=== PATIENT | female | born 1950 | race Caucasian/White ===

== ENCOUNTER 2019-08-25 15:14 | Inpatient (IN) | payer OTHER ==
[~2019-08-25] VITALS: Ht 165.1 cm; Wt 50.8 kg
[2019-08-25 17:50] VITALS: BP 110/58
--- NOTE | 2019-08-25 19:54 | NUR ---
1750 PATIENT ADMITTED TO ROOM 523B VIA CART PER AMBULANCE TRANSPORT. PATIENT AMBULATED TO BED WITH STEADY GAIT. PATIENT UP TO BATHROOM VOIDED X1. VITAL SIGNS- BP 110/58 P-88 R-18 T-99.1 SATS- 94%. WT 113LBS HT- 5'5" PATIENT STATES SHE WAS ADMITTED DUE TO SI WITH A PLAN. 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 PATIENT STATES HER CALLED POWER PLANT SUPERINTENDENT ON HER AND SHE WAS TAKEN TO [facility]. PATIENT STATES EVERYDAY STRESSORS AND HEALTH ISSUES HAS MADE HER GET TO THIS POINT. PT HAS A HX OF SI AND STATES SINCE 1983 WHEN DAD SHE WAS DX WITH DEPRESSION AND POSSIBLY BIPOLAR. SHE WAS ADDMITTED TO [facility] ON 08/22/2019. PATIENT C/O HER BROTHER KHADIJAH KNOW OF PAST SI ATTEMPTS AND HAS DONE SOMETHING TO HER COMPUTER AND POSSIBLY WATCHING HER. PATIENT ALSO MENTIONS HER PHONE SERVICE (ATT) AND HOW SHE WILL CHANGE SERVICE THEY (ANGELIKA SPOUSE) AND HER GET ABUSIVE CALLS OVER THE CELL PHONES. PATIENT STATES NOT TRUSTING PEOPLE. SHE SAYS SHE HAS NO SUPPORT FROM FAMILY OR FRIENDS. HER DPOA IS HER SISTER ( JOSEFINA VAUGHN) BUT DOES NOT WANT HER USED OR CALLED. PATIENT LIVES AT HOME WITH ANGELIKA () AND HER MEDICAL HX IS PART OF HER STRESSORS. 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 PATIENT SAYS THAT WHEN SHE WAS AWAY FOR HER PANCREATIC CANCER SHE CAME HOME TO A REORGAIZED HOME THAT ANGELIKA DID AND THAT STRESSED HER OUT. PATIENT IS ALL OVER THE PLACE WITH DETAILS ABOUT HER STRESS AND WHAT CAUSES HER DEPRESSION. PATIENT APPEARS TO BE SAD AT TIMES WHILE TALKING TO YACHT CAPTAIN THEN HAS A BURST OF ENERGY AND SPEAKS ABOUT WHAT HER ARE PLANNING ON DOING BECAUSE OF THE SUSPICIOUS PHONE CALLS. PATIENT DOES NOT COMPLAIN OF PAIN LUNG SOUNDS CLEAR, BS ACTIVE X4, PATIENT DENIES SI AT THIS TIME AND KNOWS WHAT SHE DID TO GET ADMITTED. SHE IS A VOLUNTARY ADMIT. NO SKIN TEARS NOTED, SLIGHT BRUISING TO KNEES. MEDICATION LIST FROM PATIENT RECIEVED AND PHARMACY USED IS [facility] [address] OR [email or web address] OR [facility] TO FILL MEDICATIONS. DIET ORDERED, PATIENT IS HUNGRY. REPORT GIVEN TO ON COMING SHIFT
[2019-08-25 20:09] VITALS: BP 144/48
[2019-08-25] MEDS ORDERED: XARELTO10 M1 PO (20:34)
[2019-08-25] MEDS ORDERED: FUROSEMIDE 20 M20 MG PO (20:35)
[2019-08-25] MEDS ORDERED: LISINOPRIL2.5 MG PO (20:37)
[2019-08-25] MEDS ORDERED: FAMOTIDINE20 MG PO (20:39)
[2019-08-25] MEDS ORDERED: SYNTHROID75 MCG PO (20:40)
[2019-08-25 22:00] VITALS: BP 144/48
--- NOTE | 2019-08-26 05:29 | NUR ---
PATIENT APPEARS NEEDY AND DEMANDING. SHE INTERUPTS STAFF WHEN SHE SEE'S THEY ARE IN FLIGHT TO HELP SOMEONE ELSE AND HAS TO HAVE HER QUESTIONS ANSWERED RIGHT AWAY. SHE SAT AND WORKED ON A Blueseed IN DINING ROOM BY HERSELF. PATIENT HAD ROLLED UP PAPER SHE USED EAR PLUG BECAUSE SHE SAYS THE NOISE INCREASES HER ANXIETY. SHE WAS D[facility]D FROM [facility] AFTER BEING ADMITTED THERE ON 08/21. SHE DENIES SI/AH/HI. SHE DOES SEEK PSYCH TREATMENT THOUGH AND SHE BELITTLED THIS [facility] WITHIN 2 HOURS OF BEING HERE STATING THEY NEED TO HAVE ONGOING GROUPS AND ACTIVITIES. EXPLAINED THAT THIS HAPPENS ALL DAY LONG AND AFTER SUPPER IS MORE A SOCIAL TIME AND SPOKE OF READING, CROSSWORD PUZZLES, WORD SEARCHES, COLORING ETC CAN BE DONE. PATIENT HAD HS SNACK. SHE DESIRES TO HAVE A 1:1 THERAPIST THAT JUST SITS AND TALKS WITH HER ABOUT HER GOALS. SHE STATED TO DAY NURSE THAT SHE HAS SET GOALS TO START DRAWING AGAIN AND EXERCISING MORE. PATIENT WAS CONTINUALLY FRUSTRATED AND COMPARED OUR [facility] TO OTHER PLACES AND STATES,"WE ARE NOT DOING IT RIGHT" AND COMPLAINED ALL NIGHT AND MADE SNIDE REMARKS ABOUT STAFF AND HOW SHE PERCIEVES THINGS SHOULD BE DONE. I SUGGESTED SHE SPEAK WITH THE DR AND MARKETING SUMMER INTERN ABOUT HER IDEAS. SHE WOULD NOT GIVE ME ANY. TRIED TO LISTEN CLOSELY TO HER AND ENCOURAGE HER BUT THIS MADE IT WORSE. TOLD HER THE DR AND SW WILL BE WORKING WITH HER 1:1 AND HELPING SET GOAL AND TREATMENT PLANS. PATIENT ALSO WANTING ORDER FOR CREON, A PANCREATIC ENZYME SHE STATES SHE TAKES FOR CHRONIC DIARHEA THAT SHE HAS HAD SINCE SHE HAD PANCREATIC CANCER SURGERY. SHE STATES SHE TAKES 5 CAPSULES AT EACH MEAL, 2 CAPSULES WITH SNACKS AND ALSO USES AN ANTIDIARHEAL. PATIENT DOES NOT TRUST ANYONE. STATES HER IS BRINGING A FEW BELONGINGS IN TODAY. HISTORY STATES IN 1983 WHEN HER DAD THAT HER DEPRESSION/POSSIBLE BIPOLAR BEGAN. PATIENT IS A VOLUNTARY ADMIT. SHE IS A VERY NEGATIVE AFFECT. PATIENT SLEEPING AT THIS TIME. SHE DID GET UP TWICE THRU THE NIGHT TO GET ICE WATER FROM THE WATER DISPENSER. ROUTINE ROUNDING FOR SAFETY ASSESSMENT BEING DONE. PATIENT AMBULATES AND IS STEADY ON FEET. PATIENT STATES THAT WHEN SHE WAS GIVEN AN INJECTION OF ATIVAN AT LAST PLACE THAT IT HELPED HER ANXIETY AND HELPED HER FEEL AND THINK SO MUCH BETTER. WILL CONTINUE TO MONITOR. COMPLAINED ALL NIGHT ABOUT HOW SHE PERCEIVES
[2019-08-26 08:59] VITALS: BP 140/80
--- NOTE | 2019-08-26 11:19 | NUR ---
Kelly asked to speak to me today regarding issues on the unit. I met with her Dr. Blakely and MELI Evans. Kelly stated that we are inept. She compared us to other facilities. She wanted to know what medicines she was taking. Dr. Blakely printed off her medication list. We reviewed her medications. She became angry about some of the medications that are on standing orders i.e. tylenol and the standing orders for diabetics. Once I explained the rationale for the standing orders she verbalized understanding. Dr. Blakely interviewed her about her medical and psychiatric hx. She is wanting to d/c from us, but then stated that she needs help. She stated that she has no support from family, friends or from her advent. I did enter a front line supervisor consult. I also paged the front line supervisor to come and visit with her. Kelly stated that she felt like "God is punshing her." She did admit to having suicidal thoughts today. She asked about how she can stop her anxiety and negative thoughts. I informed her that will look and her medications and adjust them as nessecary. did inquire about her medications. Cristina reasssured Kelly, that they would be having indiviualized session. Kelly admits to being angry, losing control, and being scared. When we explained things to her, she appeared to be a bit more relaxed, and verbalized understanding. See MELI and physician notes for details.
[2019-08-26 12:41] VITALS: BP 140/80
--- NOTE | 2019-08-26 12:46 | NUR ---
ASSUMED CARE AT 0700 THIS MORNING. PT. UPSET WITH MORNING MEDICATIONS BECAUSE "THEY ARE NOT RIGHT". SHE STARTED THROWING THE MEDICATIONS AROUND. THIS RN STARTED PICKING THEM UP. SHE AGAIN STARTED THROWING THEM. THIS RN TOLD HER THIS IS UNEXCEPTABLE AND CANNOT BE ALLOWED. SHE DID STOP. SHE DID NOT TAKE HER CHOLECALCIFEROL THIS MORNING. SHE DID TAKE THE REST OF THE PRESCRIBED MEDICATION. SHE CAME TO THE DOOR UPSET BECAUSE, "THIS IS NOT A REAL PLACE, IT IS A JOKE. I NEED TO GET OUT OF HERE" THIS NURSE ATTEMPTED TO TALK TO HER BUT SHE CONTINUED THE BEHAVIORS. DR. BEGUM, CASI TAFOYA, AND THE SW SPOKE WITH HER. THIS DID LAST FOR SOME TIME. IN THE AFTERNOON SHE AGAIN STARTED TALKING TO DR. BEGUM ABOUT HOW BAD SHE HAS IT HERE AND WHY DOES THE NOT WANT TO HELP HER. PT. WAS INFORMED BY TO GO TO GROUPS AND PARTICIPATE. PT. GIVEN ATIVAN 0.5 MG PO.
--- NOTE | 2019-08-26 16:44 | NUR ---
MELI, Dr. Blakely, and the nurse conditioning yard supervisor met with pt to discuss her concerns. She was upset about many things. After listening to her, MELI asked her if she was really upset about the lack of control she has in her life. She admitted that was true. She said she does not know how things go around the unit and would like a tour. MELI asked pt if she could give staff through the weekend to work with her, and she agreed to do so. MELI asked the community service officer coordinator to give pt and orientation. The community service officer coordinator did so. Pt came to MELI office and spoke with the percussion instrument repairer. After doing so, MELI talked with her about mindfulness and told her she would give her a grounding worksheet as homework. MELI provided this worksheet to pt and told her she would check back tomorrow to discuss it. MELI team will continue to follow pt during her stay on this unit.
[2019-08-26 19:51] VITALS: BP 123/88
--- NOTE | 2019-08-26 21:40 | H ---
[facility] [place] [address] HISTORY AND PHYSICAL Name: BRONSON LYNCH Room #: 523B-B ADM IN M.R.#: [id number] Admission: 08/25/19 Attend Phys: Walt Blakely DO Discharge: Date of : 52 Report #: [id number] THIS REPORT FOR: cc: COURTNEY - Family physician unknown FAM - Family physician unknown Walt Blakely DO ~ CC: Walt Blakely [facility] unknown DATE OF SERVICE: 08/26/2019 ATTENDING PHYSICIAN: Walt Blakeyl DO. BUSINESS ANALYSIS SPECIALIST: Luís Littlejohn MD REASON FOR ADMISSION: Intentional suicide attempt with a box truck driver at her community residence with her as witness with Police Department response. SOURCES OF INFORMATION: Emergency Room notes from the [facility], interview with the patient, with nurse scheduling manager and case management social worker present and a little bit 1 on 1 with me. HISTORY OF PRESENT ILLNESS: This is a 69-year-old , retired female. The patient has a number of health and psychosocial difficulties. This culminated yesterday with her who apparently has mild dementia, catching her, trying to cut her wrists with razors for a box truck driver. The patient has been experiencing increased depression. She claims acute stressors are the having dementia, recent episodes of diarrhea. The patient also is status post she reports a pancreaticoduodenectomy, otherwise, known as a Whipple procedure for pancreatic cancer that was done in February 2019. Additional information from [facility], she has a past medical history of hypertension, hyperlipidemia, diabetes mellitus, the pancreatic adenocarcinoma. She also reports a suicide attempt 2 months prior where she attempted to "strangle herself." This may have been by hanging. The patient has a psychiatrist, she will not state the name of the replaced psychiatrist that retired roughly a year ago. She also sees a therapist Cailin Hunt at clinic. Patient denies smoking, alcohol or recreational drugs. REVIEW OF SYSTEMS: From the ER, CONSTITUTIONAL: Negative for appetite change, chills or fever. HEENT: Negative for congestion or sore throat. EYES: Negative for visual disturbances. RESPIRATORY: Negative for cough and shortness of breath. CARDIOVASCULAR: Negative for chest pain or palpitations, leg swelling. GASTROINTESTINAL: Positive for diarrhea, negative for abdominal pain, constipation, nausea, vomiting. [facility] [address] [place] [address] HISTORY AND PHYSICAL Name: BRONSON LYNCH Room #: 523B-B ADM IN M.R.#: [id number] Admission: 08/25/19 Attend Phys: Walt Blakely DO Discharge: Date of : 52 Report #: [id number] GENITOURINARY: Negative for dysuria. MUSCULOSKELETAL: Negative for arthralgias, neck pain. SKIN: Negative for pallor, rash and wound. NEUROLOGICAL: Positive for generalized weakness, negative for lightheadedness and numbness and headaches. PSYCHIATRIC: Depression, suicidal ideation, denied confusion. All other review of systems were negative. ALLERGIES: ADHESIVE TAPE, CONTRAST DYE IV, IODINE CONTAINING MEDIA, LATEX AND METRIZAMIDE. PAST MEDICAL HISTORY: Acquired hypothyroidism, benign neoplasm of the lip. She has listed, but does not recall an adverse chemotherapy reaction, focal epithelial hyperplasia of tongue, hyperlipidemia, hypertension, pancreatic adenocarcinoma, pancreatic insufficiency, status post resection of pancreatic mass, which was pathology positive for the pancreatic adenocarcinoma. PAST SURGICAL HISTORY: Include gynecologic cryosurgery in 1982. Cervix precancerous lesions, removal of benign tumor from lip in 1994, she had an ERCP with placement of an endoscopic stent in the biliary pancreatic duct on 07/15/2018. She also had an EGD with transendoscopic ultrasound-guided fine-needle aspiration biopsy 07/15/2018. I believe that was when her pancreatic cancer was diagnosed. She also had a tongue biopsy that probably occurred with the tumor removal. SOCIAL HISTORY: As stated, no smoking, no alcohol, no recreational drugs. FAMILY HISTORY: Her mother a year ago of heart disease. The mother also had hypertension and high cholesterol, hypertension age of mother was 50. Diabetes in her father at 44, rashes, skin problems in her brother, melanoma in her maternal grandmother at 75, heart disease in maternal grandmother at 75, heart attack in maternal grandmother, diabetes in paternal grandfather at 90, heart attack in paternal grandfather, heart attack in paternal grandmother. Physical exam done at the ER was grossly normal. LABORATORY DATA: From white blood cell count 6.4, H and H 11.6 and 35.3, platelet count 224. CMP: Sodium 141, potassium 4.3, chloride 107, glucose 85, BUN 20, creatinine 0.64, calcium 9.0, total protein 6.2, total bilirubin 0.3, albumin 4.2, alkaline phosphatase 101, AST 41, CO2 of 21, ALT 77, anion gap 13, EGFR non- greater than 60. TSH 7.55. Alcohol less than 10, acetaminophen less than 10. Salicylate less than 2.5. Free T4 0.8. It looks like she had a urine drug screen. I do not see results noted at this time, I look on subsequent pages. Urinalysis was negative. Drug screen was negative. Interestingly, on 07/01/2019 she had a CA19-9 which is 4. CEA which was 3.5, which is elevated. She had stool cultures done ____ may have been due to her [facility] [address] [place] [address] HISTORY AND PHYSICAL Name: BRONSON LYNCH Room #: 523B-B ADM IN .R.#: [id number] Admission: 08/25/19 Attend Phys: Walt Blakely DO Discharge: Date of : 52 Report #: [id number] diarrhea. Electrocardiogram done at showed a rate of 72, NM interval 165, QT 397, QTC is 435, sinus rhythm. Additional HPI; on interview today, she was claiming the unit was not a proper place for her. Staff included myself, nursing home assistant and case management social worker. The patient was putting up repeated barriers to her treatment. I was explaining the patient due to the seriousness of her behavior yesterday she would not be discharged. At her request, referral packets could be sent at other psychiatric units. However yield would likely be low on those accepting her since she is already on a Geriatric Psych Unit. PHYSICAL EXAMINATION: VITAL SIGNS: Today as follows: Temperature 36.4, pulse 85, respirations 18, BP 140/80, O2 sat 97%. MUSCULOSKELETAL: Dressed in hospital gown. Normal gait and station. MENTAL STATUS EXAMINATION: This is a well-developed female, dressed in hospital gown, wearing glasses, appearing stated age. Attention fair. Concentration fair. Speech is normal rate. Thought process is linear, hyper-focussed on current medical problems as well as 's dementia and endorses questionable SI. Denied HI. Denied auditory, visual, or tactile hallucinations. Memory not formally tested. Insight limited. Judgment impaired. Fund of knowledge well below average. 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 She has been retired I believe she said since 2013. FORMULATION: A 69-year-old female presenting status post suicidal ideation and gesture. DIAGNOSES: At this time, major depressive disorder, likely recurrent episodes of complicated grief. 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 Numerous physical issues including diabetes mellitus, the sequela from the Whipple procedure including pancreatic insufficiency. PLAN: Evaluate, stabilize, obtain collateral. She had previously been on fluoxetine 40 mg daily. I do not think it is deal due to cytochrome enzyme system inhibition, and therefore it is not in his in her best interest to be on. We will start her on sertraline and I am going to start her on 50. Patient requested higher starting dose so we will do Sertraline 100 mg daily. We will evaluate, stabilize, obtain collateral. Time spent on interview, review of records, coordination of care is at least [address] [place] [address] HISTORY AND PHYSICAL Name: BRONSON LYNCH ROSA Room #: 523B-B ADM IN M.R.#: [id number] Admission: 08/25/19 Attend Phys: Walt Blakely DO Discharge: Date of : 52 Report #: [id number] STRENGTHS: She is insured. She has family support. WEAKNESSES: Highly virulent cancer, some cluster B personality traits. ESTIMATED LENGTH OF STAY: 10-14 days. <ELECTRONICALLY SIGNED> By: Walt Blakely DO 08/26/19 2140 [id number] Walt Blakely DO /nt
--- NOTE | 2019-08-27 04:13 | NUR ---
Assumed care of pt @ 1900. Pt calm et cooperative this shift. Pt asked about clothes that had brought in for her today. Looked in locker et gave pt pants, socks, underwear, et bras that were in locker. Pt complained that did not bring any tops for pt to wear. Talked with nurse in ER et was able to get three tops from ER department (lost et found) for pt to wear. Took medications whole without difficulty. Ambulates the halls ad manfred with steady gait. Socialized in dayroom until HS but did not engage with peers. VSWNL. Health assessment with no abnormalities noted at present time. Denies SI/HI at present time. Currently resting in bed with eyes closed. Will continue to monitor per protocol.
[2019-08-27 07:28] VITALS: BP 128/74
[2019-08-27 15:38] VITALS: BP 128/74
--- NOTE | 2019-08-27 16:32 | NUR ---
1620 RESUMMED CARE OF PATIENT FROM OVERNIGHT SHIFT, PATIENT IN DAY ROOM QUIET. PATIENT REFUSED TO GET HER BLOOD SUGAR DONE AND COMPLAINED THAT SHE SHOULD GET 3 TABS OF HER PANCREASE WITH EACH MEAL. THE MORNING DOSE ONLY SAID 1 TAB FOR BREAKFAST AND THREE FOR LUNCH. PATIENT WAS NOT RUDE BUT SHE STATED SHE KNOWS HOW TO TAKE HER MEDICATION. PATIENT'S ABDOMEN SOFT ROUND BOWEL SOUNDS PRESENT 4 QUADRANTS. PATIENT CALM COOPERATIVE EASY TO REDIRECT WILL CONTINUE TO MONITOR PATIENT FOR SAFETY.
[2019-08-27 20:23] VITALS: BP 144/68; BP 161/60
--- NOTE | 2019-08-28 04:43 | NUR ---
Assumed care of pt @ 1900. Pt calm et cooperative this shift. Pt requested list of medications et was given list with times et education on mechanism of action. Pt verbalized understanding. Took medications whole without difficulty. Ambulates the halls ad manfred with steady gait. Denies SI/HI at present time. No behaviors noted. VSWNL. Health assessment with no abnormalities noted at present time. Currently resting in bed with eyes closed. Will continue to monitor per protocol.
[2019-08-28 08:28] VITALS: BP 153/77
[2019-08-28 09:00] VITALS: BP 153/77
--- NOTE | 2019-08-28 17:56 | NUR ---
AAOX3 FLAT AFFECT. VOICES CONCERNS ABOUT BEING BORED AND NOT ENOUGH STUCTURE HERE. DID ATTEND 2 GROUPS TODAY AND SPENT MOST OF DAY IN DINNING ROOM. GOOD APPETITE FOR MEALS - VERY UPSET THAT HER MEALS THAT SHE ORDERS DO NOT COME ORDERED. AMBULTES WITH SLOW STEADY GAIT.
[2019-08-28 20:39] VITALS: BP 135/69
--- NOTE | 2019-08-28 22:51 | NUR ---
Assumed care of patient this pm shift. [facility]. Patient appears to be in good spirits. Patient was appropriate with her conversation with rn. Patient denies pain. Patient denies si/hi. Patient takes medications whole. Patient ambulates without assistance. Patient is neat and clean. Patients assessment shows clear breath sounds, active bowel sounds, and s1 s2 heard with auscultation. Patients affect normal. We will continue to monitor.
[2019-08-29 08:20] VITALS: BP 141/78
[2019-08-29 10:39] VITALS: BP 141/78
--- NOTE | 2019-08-29 11:47 | NUR ---
1100 RESUMMED CARE FROM OVERNIGHT SHIFT THIS AM, PATIENT IN DAY ROOM TALKING WITH OTHER PATIENTS WAITING FOR BREAKFAST. PATIENT TOOK MEDICATION WITHOUT INCIDENCE. PATIENTS ABDOMEN SOFT ROUND BOWEL SOUNDS PRESENT IN 4 QUADRANTS, LUNGS CLEAR. PATIENT PLEASANT CALM COOPERATIVE, PATIENT DENIES SI/HI/AH/VH AT PRESENT. PATIENT HAD VISIT FROM AND IT WENT WELL WILL CONTINUE TO MONITOR PATIENT FOR SAFETY AND BEHAVIORS.
[2019-08-29 19:27] VITALS: BP 147/77
--- NOTE | 2019-08-30 00:02 | NUR ---
Assumed care of patient this pm shift. Patient in good spirits in the mileu with peers. Patient calm and cooperative. Patient denies hi/si. Patient denies pain. Patients affect is normal. Patient takes medications whole. Patient ambulates without assistance. Patient states that her bowels are regular. Patients assessment shows clear breath sounds, active bowel sounds, and s1 s2 heard with auscultation. We will continue to monitor.
[2019-08-30 08:43] VITALS: BP 128/70
[2019-08-30 11:10] VITALS: BP 128/70
--- NOTE | 2019-08-30 11:29 | NUR ---
SW met with pt and advised that in tx team it was discussed to have a family meeting with her Hernan. Pt agreed. Pt and SW contacted Hernan who said he would be availble for a family meeting at 2pm today. SW team will continue to follow pt during her stay on this unit.
--- NOTE | 2019-08-30 12:29 | NUR ---
1145 RESUMMED CARE FROM OVERNIGHT SHIFT THIS AM, PATIENT QUIET IN DAY ROOM WAITING FOR BREAKFAST. PATIENT TOOK MEDICATION WITHOUT INCIDENCE PATIENT'S AFFECT IS FLAT AND SAD. PATIENT WAS TEARFUL TALKING TO ME ABOUT HER NOT WANTING TO BE WITH HER ANYMORE. SHE STATES THEY LIVE IN 2 DI[address] DIRECTOR CAREER LIVING PLACES. PATIENT FEELS THAT SHE DOES NOT KNOW WHAT TO DO TO HELP HER DEPRESSION AND ANXIETY. SHE HAS NO CHILDREN PARENTS ARE . I ENCOURAGED HER TO CALL HER BROTHER AND SISTER TO TALK WITH THEM IT MIGHT MAKE HER FEEL BETTER. PATIENT'S ABDOMEN SOFT ROUND BBOWEL SOUNDS PRESENT LUNGS CLEAR. PATIENT DENIES SI/HI/AH/VH AT PRESENT BUT HER DEPRESSION IS PRETTY HIGH, PATIENT LIKES TO WRITE IN HER ROOM. SHE STATES THE DAYROOM IS TO LOUD FOR HER. I ENCOURAGED PATIENT TO INTERACT MORE IN GROUPS AND START THINKING MORE POSITIVE ABOUT HERSELF. WILL CONTINUE TO MONITOR PATIENT FOR SAFETY AND BEHAVIORS.
--- NOTE | 2019-08-30 15:40 | NUR ---
MELI and Dr. Blakely met with pt and her Hernan. Discharge of Thursday 08/31 @10am was discussed. MELI asked pt and Hernan what they would like to see happen to alleviate stress and Hernan responded he still wants to remain with pt, pt said she does not know but that she is overwhelmed with everything around her. There was discussion about pt's current DPOA docs that list her sister Christin as her DPOA. MELI asked if they could supply a copy for her to review. Hernan said he would. MELI told pt she will connect her with a outpatient psych program; pt and Hernan chose [facility] for outpatient care. MELI also advised Hernan that beginning tomorrow the hospital will not be accepting outside visitors. MELI team will continue to follow pt during her stay on this unit.
[2019-08-30 15:44] VITALS: BP 128/70
[2019-08-30 19:10] VITALS: BP 117/69
--- NOTE | 2019-08-31 02:59 | NUR ---
Assumed care of pt @ 1900. Pt calm et cooperative this shift. Took medications whole without difficulty. Ambulates the halls ad manfred with steady gait. Socialized with peers in dayroom most of shift. VSWNL. Health assessment with no abnormalities noted at present time. Denies SI/HI @ present time. Currently resting in bed with eyes closed. Will continue to monitor per protocol.
[2019-08-31 07:48] VITALS: BP 144/68
[2019-08-31 14:57] VITALS: BP 144/68
--- NOTE | 2019-08-31 15:02 | NUR ---
ASSUMED CARE AT 0700 THIS MORNING. PT. UP, DRESSED AND ON THE UNIT FOR MEALS. SHE TOOK HER MEDICATIONS WITHOUT DIFFICULTY. ATTENDED GROUPS. HAS HAD A NEUTRAL AFFECT AND MOOD TODAY. NO SMILING NOTED. NO GRIMACING, FROWNING NOTED EITHER. SHE HAS BEEN PLEASANT AND COOPERATIVE WITH THIS RN.
--- NOTE | 2019-08-31 17:41 | NUR ---
SW met with pt who is still unclear about what she wants to do with her relationship. SW provided supportive listening, and insight into her situation. Pt said she has an individual therapist at named Cailin Rosen. SW and pt attempted to call the facility but received a fast busy signal at the [facility]. SW also talked with pt about outpatient therapy and together they contacted [facility] and arranged for Pt to do an intake on 09/01 @1030 am. SW team will continue to follow pt during her stay on this unit.
[2019-08-31 19:27] VITALS: BP 128/69
--- NOTE | 2019-08-31 22:15 | NUR ---
Assumed care of patient at change of shift. She was sitting in day room conversing with peers and doing [employer] puzzles. She was calm and cooperative with assessment. She currently denies pain and no signs or symptoms of distress noted. Pt. denies SI/HI/AH/VH.
[2019-08-31 23:50] VITALS: BP 128/69
[2019-09-01 07:45] VITALS: BP 128/70; BP 141/78
[2019-09-01 08:52] VITALS: BP 141/78
[2019-09-01] MEDS ORDERED: IRON325 PO (10:48)
[2019-09-01] MEDS ORDERED: SEROQUEL 25 MG25 M1 PO (10:48)
[2019-09-01] MEDS ORDERED: ZOLOFT100 MG PO (10:48)
[2019-09-01] MEDS ORDERED: PANCREAZE DR 11 EAC2 PO (10:49)
[2019-09-01] MEDS ORDERED: VITAMIN D325 MCG PO (10:50)
[2019-09-01] MEDS ORDERED: CALCITRIOL0.25 MCG PO (10:50)
--- NOTE | 2019-09-01 12:02 | NUR ---
0700 ASSUMED CARE OF PATIENT, PATIENT IN ROOM AWAKE AT THAT TIME. PATIENT AT TABLE EATING BREAKFAST THIA AM DENIES NEEDS. PATIENT TAKES MEDS WITHOUT DIFFICULTY, A+O x4, LUNG SOUNDS CLEAR, BS ACTIVE, NO C/O PAIN. PATIENT STATES GOAL FOR TO DAY IS TOGOHOME STATES "I GET TO LEAVE AT 11AM" PATIENTDENIES ANY CONCERNS TO STOVE MECHANIC HOWEVER DOES DISCUSS WITH SW ABOUT GETTING HELP AT HOME. DENIES SI/HI/AH/VH 1130 DC INSTRUCTIONS GIVEN TO PATIENT PATIENT IS WORRIED THAT SPOUSE NOT HERE YET TO PICK HER UP. STAFF MEMBER DOWN TO FRONT OF HOSPITAL TO SEE IF IS HERE. PATIENT DC'D AT 1140 VIA WC ACCOMPANIED BY STOVE MECHANIC AND OTHER RN. WAITING AT FRONT DOOR. PATIENT AMBULATED TO VEHICLE.
--- NOTE | 2019-09-01 16:16 | NUR ---
MELI D/C Note MELI faxed discharge docs for pt to [facility] at [phone]. MELI filed this fax and confirmation pt in pt's chart. No other needs for SW team to address at this time.
--- NOTE | 2019-09-02 22:44 | D ---
[facility] [place] [address] DISCHARGE SUMMARY Name: BRONSON YLNCH Room #: 523B-B [facility] IN M.R.#: [id number] Admission: 08/25/19 Attend Phys: Walt Blakely DO Discharge: 09/01/19 Date of : 52 Report #: [id number] THIS REPORT FOR: cc: COURTNEY - Family physician unknown FAM - Family physician unknown Walt Blakely DO ~ THIS REPORT FOR: //name// CC: Walt VALDEZ unknown DATE OF SERVICE: 09/01/2019 INPATIENT PSYCHIATRIC DISCHARGE SUMMARY ATTENDING PSYCHIATRIST: Walt Blakely DO. COMMERCIAL GREEN BUILDING DESIGNER: Luís Littlejohn MD DISCHARGE DIAGNOSES: Major depressive disorder, recurrent, severe degree, improved. Also, the patient has narcissistic personality traits, low self-esteem type; partner relational disorder; family relational disorder with [id number] as well as the with the patient's sister. DISCHARGE DIET: 1800-calorie diabetic diet. ACTIVITY LEVEL: As tolerated. DISPOSITION: The patient will be discharging to her home where she lives with her , Hernan. DISCHARGE MEDICATIONS: As follows: Ferrous sulfate 325 mg p.o. b.i.d. for supplementation; sertraline 100 mg p.o. daily for major depression; Seroquel 25 mg p.o. q. 6 p.r.n. for anxiety and agitation; pancreatic enzyme replacement, Pancreaze DR 10,500 units 5 capsules p.o. with meals, additional 1 cap p.o. with snacks, patient was given a script for 175; calcitriol 0.25 mcg p.o. daily for hypocalcemia; cholecalciferol, which is vitamin D3 5000 International Units p.o. daily for supplementation. Also, the patient is on Xarelto 10 mg p.o. at bedtime for anticoagulation, lisinopril 20 mg p.o. daily for hypertension, famotidine 20 mg p.o. daily for GERD, levothyroxine 75 mcg p.o. daily. Furosemide was discontinued this admission. LABORATORY DATA: This admission are as follows including labs that were done in-house were blood sugars where she remained roughly in the 90s on average. REASON FOR ADMISSION: A week or so ago, the patient was transferred from the [address] [address] DISCHARGE SUMMARY Name: MUSHTAQ LYNCHRaffy LEE Room #: [address] [place] [address] [place] ..#: [id number] Admission: 08/25/19 Attend Phys: Walt Blakely DO Discharge: 09/01/19 Date of : 52 Report #: [id number] [facility]. Her caught her attempting to cut her wrists with razors from padded box sewer. HOSPITAL COURSE: The patient was admitted to Geriatric Psychiatry Unit. Initially, the patient was rather defensive, confrontational. Over time, she did open up that she had been in [place] in the fall where her sister lived for a Whipple procedure, received radiation treatments there as well. They are having a number of problems with the family system as the has mild dementia. resides with the patient's sister. The patient sounds like has not been in consistent psychotherapy. She [facility], but has not been in anything on magnitude of weekly psychotherapy. PHP IOP was recommended; however, there is limited to no availability due to current coronavirus epidemic. On the day of discharge, the patient was not suicidal or homicidal, had modest improvement in coping skills. PHYSICAL EXAMINATION: VITAL SIGNS: On the day of discharge are as follows: Temperature 36.8, pulse 97, respirations 18, BP 141/78. Normal gait and station. Wearing glasses. MENTAL STATUS EXAMINATION: This is a well-developed, thin female appearing stated age. BMI 18.6. Attention intact. Concentration intact. Speech is normal rate, volume, tone. Thought process is linear and goal directed. Thought content focused on discharge. No psychomotor agitation. No psychomotor retardation. Denied SI or HI. Denied auditory, visual, or tactile hallucinations. Memory not formally tested. Insight limited. Judgment fair. Fund of knowledge above average. PROGNOSIS: For this patient is guarded and will depend on her engaging in outpatient psychotherapy for more productive coping skills. Certainly, once individual issues are better addressed the next month, there may well be a role for more family therapy given the multiple stressors within the family system- like her husbands cognitive decline. <ELECTRONICALLY SIGNED> By: Walt Blakely DO 09/02/19 2244 20 41 Walt Blakely DO /nt
== END 2019-09-01 11:40 | disposition home or self-care (01) | DRG 885 ==
LOC: SBH 15:14
PROVIDERS: ADMIT Psychiatry & Neurology Psychiatry
DX: F33.2 Major depressive disorder, recurrent severe without psychotic features (principal); F01.50 Vascular dementia, unspecified severity, without behavioral disturbance, psychotic disturbance, mood disturbance, and anxiety; R45.851 Suicidal ideations; I10 Essential (primary) hypertension; E78.5 Hyperlipidemia, unspecified; E03.9 Hypothyroidism, unspecified; E11.9 Type 2 diabetes mellitus without complications; F41.9 Anxiety disorder, unspecified; F60.3 Borderline personality disorder; Z85.07 Personal history of malignant neoplasm of pancreas; Z82.49 Family history of ischemic heart disease and other diseases of the circulatory system; Z83.3 Family history of diabetes mellitus; Z80.8 Family history of malignant neoplasm of other organs or systems; Z79.899 Other long term (current) drug therapy; Z79.4 Long term (current) use of insulin; Z63.9 Problem related to primary support group, unspecified
CPT/HCPCS: 10880

== ENCOUNTER 2021-03-13 15:01 | Inpatient (IN) | payer OTHER ==
[~2021-03-13] VITALS: Ht 162.6 cm; Wt 63.5 kg
[~2021-03-13 15:01] MED LIST: CALCITRIOL0.25 MCG PO; FAMOTIDINE20 MG PO; FUROSEMIDE 20 M20 MG PO; IRON325 PO; LISINOPRIL2.5 MG PO; PANCREAZE DR 11 EAC2 PO; SEROQUEL 25 MG25 M1 PO; SYNTHROID75 MCG PO; VITAMIN D325 MCG PO; XARELTO10 M1 PO; ZOLOFT100 MG PO
--- NOTE | 2021-03-14 02:36 | NUR ---
ARRIVED ON THE [facility] FLOOR ACCOMPANIED BY Q6LUVVF FROM [facility] ED TO BED 523A via w/c @ 20:40. VS 119/71 74 18 98.5F 98%SpO2 weight 104.5lbs 5'5 1/2". SKIN IS WARM AND DRY, CAP REFILL <3 SECONDS, PERIPHERAL PULSES PRESENT, NO EDEMA NOTED. BREATH SOUNDS CLEAR TO AUSCULTATION, BOWEL SOUNDS PRESENT IN ALL 4Q. DENIES SI/HI, DENIES HALLUCINATIONS. A PORT IS INTACT IN THE RIGHT CHEST WALL. SARS-COV2 (PCR) NOT DETECTED. PREVIOUS DIAGNOSIS OF BIPOLAR AND SI NOTED. BED PLACED IN LOW POSITION AND BED ALARM SET, WILL CONTINUE TO MONITOR FOR SAFETY AND COMFORT PER UNIT PROTOCOL.
[2021-03-14 05:38] LABS: CHOLESTEROL 163 mg/dL (<200); HDL CHOLESTEROL 49 mg/dL (>40); LDL CHOLESTEROL 103 mg/dL (<100); TC:HDL 3.3 Ratio (Not establshd); TRIGLYCERIDE 59 mg/dL (<150); VLDL 12 mg/dL (<40)
[2021-03-14 06:01] LABS: SERUM ASSESSMENT Clear
--- NOTE | 2021-03-14 13:04 | NUR ---
PATIENT CARE ASSUMED AT 0700, PATIENT WAS PACING ON THE HALLWAY WEARING A PAPER CLOTHS, GOR HER CHANGED INTO THE YELLOW SHIRT AND PANT, SHE WAS CALM AND PLEASANT WITH CARE, ASSESSMENT COMPLETED WITH CLEAR LUNGS, ACTIVE BOWEL SOUND WITH SOFT ABDOMEN, BLOOD PRESSURE 166/95, RE-CHEKED 141/79, REGULAR HR, RR EVEN NONLABORED ROOM AIR, SKIN INTACT, NO EDEMA NOTED, SHE TOOK MEDICATION WHOLE, DENIES SI/HI
--- NOTE | 2021-03-14 13:17 | NUR ---
[id number]--30:30--Met with patient, and Dr. Jay to gather information for the completion of a psychosocial assessment. Patient stated that it was a combination of things that had brought her here. (She was a patient in August of 2019.) She stated things got worse yesterday when she and her neighbor (who is an RN) went to [facility] where her is an in-patient and asked for information on his condition. (Patient is not his DPOA. His sister was the DPOA and she recently .) She got anxious and upset and that made them even more determined not to provide her with information. Security was called and she was escorted off the property. She listed a series of negative events in the past couple of years that have added to her stress (her mother , she had pancreatic cancer, surgery and chemo, and her was diagnosed with dementia) and she was the career services coordinator for all. The she stated she made the mistake of sayoing to her RN neighbor that "I don't want to live" and the neighbor said "you have to go somewhere" and she brought her here and the patient checked herself in. We agreed that working on alternative coping skills other than getting anxious and yelling and looking out of control was one thing we could work on before she leaves. She was agreeable to this.
--- NOTE | 2021-03-14 15:00 | NUR ---
03-14-2021--14:45--Patient came to me to assist her in calling [facility] ([facility]) to check on her 's condition. Call made ([phone]). Patient remembeded his room number ([phone]) so we asked for the 8th floor nurses station. The human resources receptionist (on speaker phone) said he was doing well, he was sitting up and had eaten today and he was to be transferred tomorrow to Rehab. Patient was relieved to hear this. We reviewed some of the things we had talked about earlier today. Advised patient since she had the answer to this question and knew he was safe, she needed to eat and rest/sleep tonight and we could call again tomorrow to check on him in rehab. I also suggested she make a list of any questions she thought of and once she wrote them down not to think about it any more until tomorrow morning. She stated she wasn't surd they would let her have a pencil or pen to write with and she could always ask the nurse of aid to make the list for her. She was agreeable to this.
[2021-03-14 19:48] VITALS: BP 127/84
[2021-03-14 19:58] VITALS: BP 127/84
--- NOTE | 2021-03-14 20:23 | NUR ---
ASSUMED CARE ON 03/14/21 @ 1900. UNCOOPERATIVE WITH ASSESSMENT AND REFUSES EACH STEP OF THE ASSESSMENT, THEN STANDS AND WALKS AWAY, THEN COOPERATES AND SAYS "I DONT SEE WHY YOU SAY I AM NOT COOERATING" THAT PROCESS REPEATS WITH EACH QUESTION IN THE MENTAL HEALTH ASSESSMENT AND THE PHYSICAL ASSESSMENT. A&OX1 TO PRESIDENT, REFUSED ALL OTHER ORIENTATION QUESTIONS. REPORTS PHYSICAL WEAKNESS IS A PROBLEM FOR HER. EDUCATION PROVIDED TO BOTH MENTAL HEALTH AND PHYSICAL HEALTH ARE COMPONENTS OF WELLNESS, AND THAT SHE HAS DOCTORS FOLLOWING BOTH ASPECTS OF HER CARE.
[2021-03-15 01:06] LABS: GLYCOHEMOGLOBIN (HGB A1C) 5.6 % (4.8-5.6)
[2021-03-15 09:10] VITALS: BP 144/87
--- NOTE | 2021-03-15 09:36 | NUR ---
03-15-2021--08:30--Patient intercepted me when I was at the nurses station. She stated she wanted to call and see how her was doing. I advised if they are moving him to rehab today it will probably be after 10:00. I asked her to wait and we would call and ask about his condition and what she has to do to get information about her from them. I explained that they may hesitate due to the behaviors she had a couple of days ago. She then stated "I've mamnaged to alienate the staff here too". I asked what happened and read the RN's note in her chart. She wouldn't answer orientation questions for the RN last night. I explained this is an important part of her stay here (making sure she is alert and oriented). She stated her understanding and said she would try harder. (Observatiom: She is ready to accept blame for almost anything and will hang her head or put her hands over her face. No real tears have been observed up to this point.) I told her she needs to attend all groups and [facility].
[2021-03-15 10:43] VITALS: BP 144/87
--- NOTE | 2021-03-15 13:45 | NUR ---
Odalys was alert and oriented to person, place, time, and situation this shift. She was withdrawn and isolative to her room for most of the shift but did partake in groups. She was reserved with her answers and expressed "dealing with a lot" but did not wish to discuss. When asked if she was having thoughts of wishing she could go to sleep and not wake up/suicidal thoughts, she laughed and denied SI/HI/TERAN. She was medication compliant and expressed she would "try to eat". She ate fruit off her breakfast tray this morning and then expressed feeling weak. She was given two containers of applesauce and a glucerna which she completed and stated she felt better afterwards. Although, she later told RN that after the glucerna she experienced diarrhea with some nausea, that had since subsided. She was instructed to tell RN if the diarrhea continues. She was given a menu as she expressed with her pancreatic CA she can only tolerate certain food. Pt was encouraged to express her needs to staff. Pt was given her book out of her belongings per pt request. Pt was given a walker for safety as pt was feeling unsteady earlier in the shift. Will continue to monitor.
[2021-03-15 19:19] VITALS: BP 119/69
--- NOTE | 2021-03-15 22:25 | H ---
[facility] [place] [address] HISTORY AND PHYSICAL Name: BRONSON LYNCH Room #: 523A-A ADM IN M.R.#: [id number] Admission: 03/13/21 Attend Phys: Walt Blakely DO Discharge: Date of : 52 Report #: [id number] THIS REPORT FOR: cc: FAM - Family physician unknown FAM - Family physician unknown Walt Blakely DO ~ DATE OF SERVICE: 03/14/2021 INPATIENT PSYCHIATRIC EVALUATION ATTENDING PSYCHIATRIST: Walt Blakely DO PATIENT'S LIBRARIAN: DESIRAE Martines and Eduardo Baxter MD and his hospitalist team. REASON FOR ADMISSION: Suicidal ideation. SOURCES OF INFORMATION: Records from [facility] Emergency Room notes and records here at [facility], interview with the patient. Also, records from previous hospitalization in 08/2019 when the patient was here. CHIEF COMPLAINT: Unspecified. HISTORY OF PRESENT ILLNESS: This is a 70-year-old female who I initially had not remembered from previous hospitalization she had on my service in 08/2019. At this time, the patient is presenting in similarly with the suicidal ideation scenario. Apparently, the patient was brought to care by her neighbor who is a nurse. She admitted to the neighbor suicidal ideation without a specific plan. The patient has concerns she has had relapse of pancreatic cancer and she is searching for a new oncologist. The patient reports that the recent stressor is her who has moderate dementia. He was admitted at [facility]. The patient stated she attempted to visit him the day of presentation, was frustrated that she was not provided updates on him. She felt that her does not care if I come there or if I am even in the house anymore. She was reportedly escorted out of [facility] by their security. The patient admits to history of suicide attempts, one by hanging and one by overdose in 03/2020. The 03/2020 was actually after her psychiatric hospitalizations on my service. At that time, she overdosed on Remeron and lorazepam and was reportedly in the intensive care unit at the [facility]. She went to inpatient psych at [facility] following that. The patient had also inpatient psychiatric treatment at [facility], [facility] and [facility]. The patient reported she is not currently receiving treatment from a psychiatrist or therapist for her mental health. States that she takes sertraline 200 mg in the morning and Seroquel 50 mg at night; however, she has been taking half quetiapine tablet. She reports she was also prescribed lorazepam p.r.n., was [address] [address] HISTORY AND PHYSICAL Name: MUSHTAQ LYNCHRaffy LEE Room #: 523A-A ADM IN M.R.#: [id number] Admission: 03/13/21 Attend Phys: Walt Blakely DO Discharge: Date of : 52 Report #: [id number] not taking this medication. She also takes pancreatic enzymes with every meal. She states she has suffered a significant weight loss this year and that has given her rise to her cancer concerns. The patient does her ADLs. She is unable to lift certain items or clean her home. She reports that her neighbor, Priti, has a significant support. Interestingly, it is noted in the [facility] paperwork that she is considering separation from her . Collateral was obtained from Priti Red at [phone]. Both the patient and ED completed affidavit provided information, later stated that she picked the patient up from [email or web address] where the patient was living with her who was medically admitted there. Neighbor reports that the patient was escorted from [employer] by security for an unknown reason when she picked her up. Neighbor reported that the patient has dementia of unknown severity. The patient stated that he did not care if she was there or not. Neighbor reports she asked the patient if she was a danger to herself, the patient responded yes and neighbor brought her to the ED. The patient has denied alcohol or drug use in the last 12 months. Denies smoking. Interestingly, in 08/2019, she was found with metal box maker and was threatening to cut her wrist. LABORATORY DATA: Reviewed at [facility] include sodium 140; potassium 4.2; chloride 102; bicarbonate 30; anion gap 8; calcium 9.4; glucose 87; total protein 7.4; albumin 4.6; alkaline phosphatase 123; ALT 104; AST 76, was slightly high; total bilirubin 0.4; BUN 15; creatinine 0.6. GFR female non- 99. UDS was not detected. Salicylate was 2. Urine was positive for leukocyte esterase, otherwise negative. White count 6.32, H and H 12.2 and 38, platelet count 221. PAST MEDICAL HISTORY: She does have past history of abdominal surgery, thyroid gland disease, diabetes mellitus, unsure of diagnosis per the patient. PSYCHIATRIC HISTORY: Includes depression, PTSD, narcissistic personality features. REVIEW OF SYSTEMS: From [facility] ED include: CONSTITUTIONAL: Denies fever or chills. ENT: Denies earache, sore throat. RESPIRATORY: Denies cough or shortness of breath. CARDIOVASCULAR: Denies chest pain. GASTROINTESTINAL: Denies abdominal pain, diarrhea, nausea or vomiting. MUSCULOSKELETAL: Denies back pain. SKIN, ALLERGY AND IMMUNOLOGY: Denies rashes or hives. NEUROLOGIC: Denies weakness, numbness or tingling. Otherwise, brief 10-point was negative. Electrolytes are as previously reviewed. SARS-CoV-2 PCR was negative. [facility] [address] [place] [address] HISTORY AND PHYSICAL Name: BRONSON LYNCH Room #: 523A-A ADM IN [facility]#: [id number] Admission: 03/13/21 Attend Phys: Walt Blakely, Discharge: Date of : 52 Report #: [id number] HOME MEDICATIONS: Aspirin; calcium carbonate; cholecalciferol; levothyroxine 75 mcg daily; lisinopril 10 mg daily; multivitamin; omeprazole 10 mg daily; Pancrelipase, Creon 5 tablets with meals; Seroquel 50 mg daily; sertraline 200 mg daily. ALLERGIES: CONTRAST DYE, ADHESIVE TAPE, AND LATEX. The affidavit done by the neighbor, Priti, additionally stated her called EMS for her and told me he caught her in time, I think it was an intentional overdose, but I am not sure. They are very private about their affairs. Interestingly, at the [facility] ED, social services provided the patient with status update . The beds were unavailable at that time in the morning. The patient stated "you know what I'm just hoping and praying when I here tonight I don't know, but I do. I'm tired of all this." The patient also stated that she was trying "to convince myself to live." Suicide attempt by hanging was 06/2019. PAST MEDICAL HISTORY: Neoplasm of the liver, hypertension, hyperlipidemia, pancreatic adenocarcinoma, diabetes mellitus type 2. SURGICAL HISTORY: Including Whipple, ERCP with biliary stent and extraction, benign neoplasm of the liver. Some additional surgical history cryosurgery in 1982. PHYSICAL EXAMINATION: VITAL SIGNS: Here at [place], temperature 98.5, pulse 68, respirations 15, BP 166/95, O2 sat 98%. MUSCULOSKELETAL: malnourished appeared, normal gait and station. LABORATORY DATA: Here at [place], A1c pending. TSH 7.036, triglycerides 69, total cholesterol 163, LDL 103, HDL 49. MENTAL STATUS EXAMINATION: This is a well-developed, ill-appearing female, apparently her stated age. Attention fair. Concentration fair. Speech normal in rate, amount and tone. Thought process: Linear and goal directed. Thought content: Focused on present predicament and situation with her being hospitalized at [facility]. Mood and affect: Restricted, frustrated, constricted, congruent. Also, memory not formally tested. Insight and judgment limited. Fund of knowledge at least average range. FAMILY HISTORY: Mother a year ago of heart disease. Mother also had hypertension, high cholesterol, diabetes in her father at 44, skin problems in her brother, melanoma in her maternal grandmother at 75, heart [facility] [address] [place] [address] HISTORY AND PHYSICAL Name: BRONSON LYNCH Room #: 523A-A ADM IN ..#: [id number] Admission: 03/13/21 Attend Phys: Walt Blakely, DO Discharge: Date of : 52 Report #: [id number] disease in maternal grandmother at 75, heart attack in maternal grandmother, diabetes in paternal grandfather at 90, heart attack in paternal grandfather, heart attack in paternal grandmother. FORMULATION: A 70-year-old female who presented to the ER with SI after problematic visit with her and is hospitalized at [facility]. DIAGNOSES: Major depressive disorder, recurrent, severe degree. Unspecified Anxiety Narcissistic personality traits. A number of medical problems including the pancreatic adenocarcinoma history, hypertension. PLAN: The patient is admitted voluntarily to the [facility] in [facility] to evaluate and stabilize. In terms of her medication, I increased her lisinopril to 10 mg daily, this is her home dose. We will continue the sertraline 100 mg daily, Seroquel started her on scheduled 25 mg oral 3 times a day for anxiety, ferrous sulfate that she is on 325 twice a day. She requested to know her lab work. Cholecalciferol 5000 international units daily, calcitriol 0.25 mcg oral daily for hypercalcemia, pancreatic enzyme replacement 5 capsules before meals, levothyroxine 75 mcg daily, famotidine 20 mg oral daily, Seroquel 25 mg q. 6 hours p.r.n. Otherwise, house PRNs. STRENGTHS: She is insured, has a place to live. WEAKNESSES: is demented, poor coping skills, believe the patient has a sister in [place], [place], at [phone]. This social services will reach out to. She is a full code. Time spent on this case is greater than 60 minutes, greater than 50% of time was in review of records and coordination of care. <ELECTRONICALLY SIGNED> By: Walt Blakely, 03/15/21 2225 1321 1534 Walt Blakely, /nt
--- NOTE | 2021-03-16 03:45 | NUR ---
PATIENT WITHDRAWN AND RESTING IN HER ROOM. HER SPEECH IS DELAYED WHEN RESPONDING TO QUESTIONS. SHE IS DOING A WORD PUZZLE IN HER ROOM. SHE ASKS IF SHE CAN HAVE A DIFFERENT PENCIL. I ASKED HER WHAT WAS WRONG WITH THE ONE SHE WAS USING. SHE STATED THAT IT IS TOO SMALL. INFORMED PT THAT THESE WERE THE ONLY SIZE PENCILS THAT WERE AVAILABLE TO THE UNIT. SHE STATED THAT SHE UNDERSTOOD. SHE IS DRESSED APPROPRIATELY. COMPLIED WITH MEDICATION REGIMEN. DENIES PAIN OR NEEDS. WILL CONTINUE TO MONITOR FO RCHANGES IN PATIENT.
[2021-03-16 08:49] VITALS: BP 147/71
[2021-03-16 09:07] VITALS: BP 147/71
--- NOTE | 2021-03-16 12:48 | NUR ---
03-16-2021--12:30--Call from [employer] ([employer]--[phone]). She wanted the contact information for patient. I told her I needed the patient in the office before I answered any questions. I went to get patient who was sitting on her bed doing puzzles. She came back to ,my office and we called [employer] together. (SW was attempting to get patient's information in case there was an emergency.) My number was provided as patient doesn't have her phone. Call made to [facility] where her was taken for rehab. ([phone]). She needs to speak with the social media marketing manager and she wasn't in. The social workers name is Saravanan and will call my number when she gets back in. I asked patient if she planned on him moving back on with her and she stated she wasn't sure. I asked if she thought she could take care of him and she stated "no". I explained she may need for him to stay where he is and she stated she would think about it. She said she needed to call some of her siblings so they could take care of things at the house. I told her she could ask the nurses for the phone and make the calls after group.
--- NOTE | 2021-03-16 14:43 | NUR ---
03-16-2021--14:30--Call received from Saravanan (MELI) at [facility] where patient's is for rehab. Saravanan answered many questions for her re: the LOS, who the DPOA will be now that his original DPOA (sister) recently and where he can move after this. Saravanan stated she had been in contact with a SW from the [place] since he was in [place]. The amount of his benefits will be determined by his degree of service connection. They provided Saravanan with the number of his sister in [place] (Kelly Geiger--[phone]) who is agreeable to becoming his DPOA or seek guardianship of him. Patient called her qblzpv-bm-mxk who was very concerned about the patient's well being also. (Her jssovf-mn-ssm and her know the patient as "Kelly".) I gave patient a pad of paper to start writing thoughts and questions that she wants to ask the SW or her rlzerd-aa-dil. The SW at [facility] gave patient his room number (605) to call and talk to her and told the patient he had been asking about her. (It was agreed with patient that it moight be best to wait until next week to call him to let him get more adjusted to his surroundings.) Patient was very grateful and asked good questions with the wind up worker and her szdhpv-qv-grl. Pad of paper provded so patient can start writoing down questions she wants or needs answers to. Patient told the SW and her zrqvur-sm-clp that she knew he couldn't come home because she can't care for him. (She is becoming more logical and insightful about the situation.) Patient has asked for additional coping skills to help her handle her anxiety so she doesn't have another melt-down like she did at [facility] at the beginning of the week when she ended up here due to her panic. Will continue to check-in with patient to determine level of anxiety. Patient has her fsflre-to-xat's number and she told the patient she could call her over the weekend. (I explained all she had to do was ask the nurses for the phone to call her.)
--- NOTE | 2021-03-16 17:47 | NUR ---
Odalys was alert and oriented x4 this shift. She denied SI/HI/TERAN this shift. After AM medications pt c/o feeling dizzy "and like my heart is racing". Pt was encouraged to drink fluids and vitals were stable with BP 125/61, HR 69, O2 98%, temp 97.8. She laid in bed and fell asleep, and reported feeling better once she woke up. This was reported and addressed during tx team this morning. Pt also wished to not take her 1400 seroquel until talking to Dr. Joya. This was reported to Dr. Joya at 1615 as she had not yet seen pt. Pt was compliant with seroquel after discussing with Dr. Joya and given per AUG. Pt refused her ferrous sulfate this shift; Dr. Baxter is aware and ok if pt does not wish to take. This afternoon pt stated "I need something, I'm being manic". Pt was asked to describe what she meant by "being manic" and pt stated "I don't know, more talkative". Pt was offered education at that time in regard to seroquel but wished to wait till seeing the doctor. Pt later asked for books and magazines, then came out and stated "Dr. Blakely said I could have my knitting stuff". RN looked through notes and orders and nothing stated pt could have her knitting items. This was relayed to pt, and offered magazines and puzzles but pt declined. Pt was labile throughout the day, often frustrated and irritable, and was tearful this evening. Will continue to monitor.
[2021-03-16 19:30] VITALS: BP 125/71
--- NOTE | 2021-03-17 02:18 | NUR ---
PATIENT HAS ATTENTION SEEKING BEHAVIORS. PATIENT DID ALLOW ME TO LISTEN TO LUNGS, HEART AND BELLY BUT WAS UNCOOPERATIVE WITH ASSESSMENT QUESTIONS TELLING THAT SHE DID NOT WISH TO DISCUSS HER ISSUES WITH ME. PATIENT HAD BM TODAY, HAS STEADY AND STRONG GAIT, CONTINENT OF BOWEL AND BLADDER AND IS MEDICATION COMPLIANT.
[2021-03-17 09:26] VITALS: BP 128/67
[2021-03-17 10:44] VITALS: BP 128/67
--- NOTE | 2021-03-17 13:55 | NUR ---
Odalys was alert and oriented x4 this shift. She attempted to attend AM group but got up at the start stating her medication were not sitting well with her and went to lay down in her room. Pt was medication and meal compliant this shift, refusing he ferrous sulfate but Dr. Baxter is aware. She reported that she slept better last night and feels as though her anxiety has improved. She denied SI/HI/TERAN and contracted for safety. She reported her last BM was last night and she had diarrhea, which she expressed happens "from time to time" after she was diagnosed with pancreatic CA. She continues to display thought blocking and expressed "it's hard to think clearly", but appears to be improved from previous days as she is able to hold a conversation a little easier today. She spoke to her sister, Christin, today which she appeared to enjoy. Per Christin she is pt's DPOA but pt denies this. Pt's goal for the day was to "be more cooperative". Pt did smile and laugh a few times during conversation with this copy writer. Will continue to monitor.
--- NOTE | 2021-03-17 17:24 | NUR ---
SW attempted to check in with the pt. The pt was in her room making a board to do a sudoku puzzle. The pt. expressed having concerns but not wanting to address those concerns with someone she is meeting for the first time. The SW encouraged her to express the concerns; however, the pt. then stated that she was fine.
--- NOTE | 2021-03-18 02:52 | NUR ---
PATIENT HAS BEEN IN ROOM MOST OF THE EVENING. PATIENT HAS BEEN PLEASANT, MEDICATION COMPLIANT, DENIES ALL PSYCH, AMBULATES WITH STRONG, STEADY GAIT. NO CONCERNS NOTED.
[2021-03-18 09:50] VITALS: BP 155/70
[2021-03-18 12:33] VITALS: BP 155/70
--- NOTE | 2021-03-18 15:46 | NUR ---
Check in with pt. during group. Pt. expressed having trust issues but felt comfortable talking to the SW today since she had met her yesterday as well. The pt. asked the SW to sit and talk with her. The pt. discussed having overwhelming feelings due to the spouse's dementia, the loss of a parent(mother), and other issues in her life. The pt. expressed being hard on herself as she is not doing what her values are aligned with. The pt. also expressed having anger and wanting to address that feeling. The SW and the pt. discussed grief and loss. The SW encouraged the pt. to not feel the need to try to address everything at once as that will be overwhelming. The pt. had made the goal of attending groups and she did. The SW told the pt. that that was a big accomplishment and that she could make another goal to accomplish. The SW suggested the pt. write 3 positive things about herself. The SW informed the pt. that the SW for the week will follow up with her.
--- NOTE | 2021-03-18 17:46 | NUR ---
Odalys was alert and oriented x4 this shift. Pt started the morning off frustrated, voicing her complaints, and did not want to take her medications. During this conversation, pt threw her glasses off on the bed in frustration but would start to express herself, then state "well no, I'm not going to say that". Pt did not express why she did not wish to take her medications but then after discussing stated "well, I should really take my zoloft, seroquel and lisinopril", which pt was compliant with. Pt continued to refuse her lipase throughout the day, this RN paged Dr. Santamaria to notify him of this which he is now aware of. Pt denies side effect of diarrhea from not taking her lipase. As the day continued pt became more calm and cooperative, less frustrated, and more open with this RN regarding her struggles. Pt appears to be struggling with a lot of anxiety, ruminating thoughts, and choices that she has made over the years. She also appears to be struggling with her husbands current state but reports she talked to her husbands sister today who stated he is walking and continues to ask about Odalys. Odalys stated she was under the impression she was pt's DPOA but that the rehab facility will not give her any information. Pt denied SI/HI/TERAN and contracted for safety. She expressed wishes to see an oncologist while she was here and stated "I don't understand why I have not seen an oncologist". Will continue to monitor.
[2021-03-18 19:30] VITALS: BP 115/76
--- NOTE | 2021-03-19 00:12 | NUR ---
PATIENT RESTING IN HER ROOM AAOX3. SHE IS CALM AND COOPERATIVE AND FOLLOWS ALL COMMANDS. STATES THAT SHE IFEELS TRAPPED BEING ON THE SAME UNIT ALL DAY AND NIGHT. SHE IS COMPLIANT WITH HER MEDICATIONS. SHE IS STEADY ON HER FEET AND NEEDS NO ASSISTANCE FOR SELF CARE. SHE DID COME TO THE COMMON AREA FOR A BIT FOR SNACK BUT THEN RETURNED TO HER ROOM. VSS. DENIES PAIN OR NEEDS. WILL CONTINUE TO MONITOR FOR CHANGES IN STATUS.
[2021-03-19 09:40] VITALS: BP 155/80
[2021-03-19 12:24] VITALS: BP 155/80
--- NOTE | 2021-03-19 13:08 | NUR ---
RESUMMED CARE FROM OVERNIGHT SHIFT THIS AM, PATIENT SITTING IN ROOM QUIET. PATIENT ATE BREAKFAST TOOK MEDICATION WITHOUT INCIDENCE, PATIENT REFUSED TO TAKE LIPASE. PATIENT DENIES SI/HI/AH/VH AT PRESENT PATIENT HAS ANXIETY SHE RATES AT A 8. PATIENT HAS DEPRESSION SHE RATES IT A 6, PATIENTS STATES SHE HAS QUILT ABOUT CERTAIN THINGS IN HER LIFE. PATIENT WOULD LIKE TO TALK WITH EEO OFFICER. PATIENTS ABDOMEN SOFT BOWEL SOUNDS PRESENT, PATIENTS LUNGS CLEAR. PATIENT DOES NOT WANT TO PARTICPATE IN GROUPS SHE LIKES TO ISOLATE SELF IN ROOM. PATIENT HAS NOT DISPLAYED ANY BEHAVIORS WILL CONTINUE TO MONITOR PATIENT FOR SAFETY AND BEHAVIORS.
--- NOTE | 2021-03-19 13:57 | NUR ---
03-19-2021--14:00--Brought patient into my office after group. She was once again ruminating about "the schedule they gave me is from 2018 and it's not right." Inquired if she had called the number for [employer] to find out how her was doing in rehab. She stated she hadn't and that she didn't kmow she had the number. I told her I gave it to her last week when I gave her the pad of paper. I asked her to go look at the pad of paper and see if it was in there and explained she could call the rehab center where her is independently. She left my office to find the number.
--- NOTE | 2021-03-19 15:46 | NUR ---
Pt has been walking up and down the hallway, waving her arms and presenting as agitated. Pt has been talking to air, and appears to be responding to internal stimuli. Pt asked staff if she could go into the quiet room and scream. Staff let pt into the quiet room for 30 seconds so she could scream, and pt proceeded to scream. After this, pt stated that she used to scream with a friend when she was younger and that this made her feel better. Pt then proceeded to skip up and down the hallway and once again talk to internal stimuli. Pt refused any medication at this time. No further issues noted. Will continue to monitor for pt safety and psychiatric concerns.
--- NOTE | 2021-03-20 00:34 | NUR ---
AT ONSET OF ASSISTANT MECHANIC PT WAS SITTING IN A CHAIR IN HER ROOM WORKING ON A [employer] SHE MADE HERSELF. THIS SHIFT PT WAS ALERT AND ORIENTED X4. PT WAS COMPLIANT WITH MEDICATION AND VITAL SIGNS. PT WAS OVERALL CALM, BUT WAS IRRITABLE WITH STAFF DURING 1:1 CONVERSATION. PT WAS CONCERNED HER BLOOD PRESSUE IS TOO HIGH AND BELIEVES SHE NEEDS HER MEDICATION INCREASED. DURING 1:1 PT DID NOT MAKE GOOD EYE CONTACT WITH RN. PT ENDORSED DEPRESSION. DENIED SI AND HI. WHEN ASKED IF SHE WAS HAVING HALLUCINATIONS PT ASKED "HOW DO PEOPLE KNOW IF THEY ARE HAVING HALLUCINATIONS?" RN EXPLAINED AND PT STATED SHE IS UNSURE IF SHE HAS AVH OR NOT BUT THINKS SHE MAY.
--- NOTE | 2021-03-20 08:34 | NUR ---
03-20-2021--799--Patient was in her own room. I explained I had gotten her a new notebook as the one I had given her previously had wire holding it together. Staff took it away from her but she states she understands that someone could get the wire and hurt themselves. I inquired if she had phone calls last night and she stated "no". Inquired if she had written doen three positive things about herself to use when she starts having negative thoughts. She thought she cojld do this. I also asked herif she had given any thought to where she would like to go at [place] (home or to a facility). She stated she hadn't thought about it at all. Encoraged her to do a pros and cons list putting the benefits of moving back to home with .
[2021-03-20 09:09] VITALS: BP 140/69
[2021-03-20 09:28] VITALS: BP 140/69
--- NOTE | 2021-03-20 11:30 | NUR ---
RT Progress Note- Odalys has been present in most recreation therapy groups this first week of admission. She presents anxious during almost all groups (sometimes more than others) and displays this by constant movement. She continues to discuss not having control in her life and the feeling that she cannot make the right choices. She is able to identify coping skills during group discussions and has been observed practicing them independently late in the week. LASER MACHINE OPERATOR will continue to encourage patient progress and participation.
--- NOTE | 2021-03-20 14:55 | NUR ---
Odalys was alert and oriented x4 throughout the day. She appears anxious and guarded with a flat affect and poor eye contact. She also voiced frustrations throughout the day but when trying to problem solve with pt she shuts down and does not converse or express her needs. She denied SI/HI/TERAN and when asked if pt would come to staff if she developed suicidal thoughts, she stated "and what would you guys do then?". Pt appears to be sarcastic and evasive at times. Pt was given education regarding safety and emotional support. Pt attended groups throughout the day but was otherwise withdrawn to her room. She reports her energy is better and she slept well last night. She refused her iron and lipase throughout the day but Dr. Santamaria is aware. She denies episodes of diarrhea at this time, and denies other physical complaints/pain. She is ambulating independently and is independent with cares. She requested to order her own meals as to not waste food, menu provided to pt, and lunch was called in per pt request. Pt does have a good appetite and completes almost 100% of her meals. Pt called her 's facility and left a for his SW asking for a call back. Pt has appeared anxious awaiting a call back, which has not yet occurred. Pt voiced that she feels she is not getting better and wishes to leave. Will continue to monitor.
--- NOTE | 2021-03-20 17:30 | NUR ---
This afternoon pt became very overwhelmed. The INSIDE SALES PROFESSIONAL approached pt to see if she wanted to shower and pt threw her hands up and leaned in as if she were going to slam her bedroom door. Pt then laid down on her bed and began crying but did not express what was upsetting her. A little later pt approached this RN and we spoke for about 20 minutes. She expressed that "the way that I'm feeling had me thinking I don't have an advanced directive here, and if I were to have a heart attack or something I don't want anything done to bring me back". Pt was educated that this RN was unsure of the protocol as usually on a unit these types of decisions can be tricky. This information was later relayed to Dr. Blakely who stated he would discuss this with pt. Pt then expressed that she has not properly grieved the loss of her mom and that groups and conversations her roommate has been having have brought up reminders and she feels there are things she could have done differently. Emotional support was given and pt was receptive. She was tearful during this conversation and appears to be ruminating on thoughts of the past and that "would have and could haves". Pt expressed frustration with being here but then stated "well I can't go home either". Pt was asked if she thought if she went home if she could be safe and pt took a long pause and avoided the question. Pt then went to lay down and is currently resting. Pt's interdisciplinary professor called and would like to come visit and pray with pt, his phone number was given to pt and information taken down for tx team tomorrow morning. Will continue to monitor.
[2021-03-20 19:43] VITALS: BP 122/71
--- NOTE | 2021-03-20 23:08 | NUR ---
AT ONSET OF SHIFT PT WAS SITTING ON HER BED WRITING IN A JOURNAL. THIS SHIFT PT WAS ALERT AND ORIENTED X4. PT WAS OVERALL IRRITABLE AND SARCASTIC. PT CAN BE PLEASANT, BUT PT BECOMES FRUSTRATED WHEN NEEDS ARE NOT MET IMMEDIATELY OR WHEN TOLD TO WAIT. PT WAS COOPERATIVE WITH MEDICATION AND VITAL SIGNS. WHEN ASKED ABOUT DEPRESSION, PT SAID HALF A SENTENCE AND THEN STOPS TALKING WITHOUT COMPLETELY ANSWERING THE QUESTION. PT DOES THIS WHEN RESPONDING TO PSYCH QUESTIONS. RN STATED TO PT THAT STAFF CANNOT READ HER MIND AND SHE NEEDS TO VOICE HER NEEDS AND HOW SHE IS FEELING. UNABLE TO ASSESS SI, HI, AND AVH. WILL CONTINUE TO MONITOR.
[2021-03-21 09:38] VITALS: BP 148/66
--- NOTE | 2021-03-21 11:46 | NUR ---
03-21-2021--1145--Went to patient's room to talk about discharging plans. Asked patient if she had considered a half-way or assisted living. She said "NO!!!" vey emphatically. I told her that in the notes the nurses have been writing that she is not cooperating when asked about SI/HI and that she is elusive when she does answer or changes the subject. Patient states she always answered them. I inquired if she had an individual therapist and she said she thought hois name was Salo Lopez from [facility]. But stated "That didn't work out very good". She said she looked into the PHP at [facility] but "They weren't doing it because of COVID". I asked how long ago that was and she said "about a year ago". She states she worked for [employer] "and that didn't work out". Then she was tellig me abot all the changes here that she couldn't handle and I explained the one sure thing about the world is change. She then told me she has PTSD and "loud noises scare me" and stated "I'm my own worst enemy". I fifii asked what her DC plans were. She stated "I don't know". She asked about guardianship being just temporary and I told her I didn't know. She feels everythoing revolves around what her does. ex. The house is in both of our names; someone could go with me to the house (Who?). She doesn't know. She states she doesn't want to go back to the house to live. Then she began talking abot her going back to the house. I attempted to explain she wasn't going to have to worry about Hernan because his sister will be his DPOA or guardian. She can sign for him. She said How do I do all of this. I explained I am not an supervisor slate splitting and that she needs to talk to one or someone she trusts. She stated "I don't know how". I asked patient to think about what she is going to do with Hernan out of the situation. What are YOU going to do and I will talk to her later in the day. She stated "okay" and left my office.
--- NOTE | 2021-03-21 17:26 | NUR ---
PT ALERT AND ORIENTED TIMES FOUR. WITH VERY BLUTED AFFECT. PT SEEMS VERY IRRIATED WHEN NURSE ASK HER ANY QUESTIONS. PT DENIES PAIN/SI/HI/AH/VH. PT REFUSED SOME MEDICATIONS TODAY. PT DID ATTEND GROUPS TODAY. VERY LITTLE INTEACTION WITH STAFF AND PEERS. WILL CONTINUE TO MONITOR.
[2021-03-21 19:32] VITALS: BP 149/88
--- NOTE | 2021-03-22 00:32 | NUR ---
Assumed care on 03/22/21 @ 1900, took meds without complaint, paranoia displayed regarding staff's " Motivation for checking on me and setting my bed in a low position, you've got an alterior motivation" Shirt provided from locker and laces taken out of shoes and provided as requested by Dr. Blakely.
[2021-03-22 09:51] VITALS: BP 168/82
--- NOTE | 2021-03-22 09:51 | NUR ---
03-22-2021--10:00--Met with patient in her room. She was laying down during group. I asked if she had eaten breakfast and she stated they keep giving me things I don't like. I explained that with th meds she akes she needs to have some food in her stomach. Patient was very groggy today and hardl able to keep her eyes open. (I noticed this yesterday also.) I educated her omn getting up and being involved in things and that she will feel much better than when she is laying around ruminating about how things are going to be different. I encouraged her to advocate for herself (ie. if she thinks the meds are too strong seek the doctor out and let him know or let the nurses know.) Gonzalez told me the thoings she used to be responsibole when she and her were together at their home. I told her it sounded like she was very responsible and able to do a lot of things. I discussed AL with her and explained there are many different levels. We will call a sibling of hers this afternoon and call [facility] to get information on her 's progress. She was agreeable.
[2021-03-22 11:12] VITALS: BP 168/82
--- NOTE | 2021-03-22 11:50 | NUR ---
03-22-2021--11:30-- and I met with patient to discuss her discharge plans. She was very hesitant and indecisive. She didn't have anyone to pick her up but then remembered her friend Gogo ([phone]) and she called her. Her friend will be here at 1400 for discharge. I asked if she wanted to call [facility] to make an appointment and she said no. I asked her also about calling the number for the new CIARA MURPHY she wants. She didn't want to make an appointment. We called [facility] and talked to the . All she could ask her was "Does Hernan ask for me". joinery factory worker delaney she doesn't work like that with him and transferred her to OT/PT. No one answered and she refused to leave a name or number to call her back. Doctor asked her directly and asked for a yes/no answer "Do jimmy feel like you could kill yourself or someone else". Again she was evasive and stated "it wouldn't do me any good". He again asked for a straight answer and she said "no". She stated she thought [facility] only wanted to send people to [facility]. I told her that was not true but she needs to start answering questions and appearing helpless or someone might try. I told her she needs to call [facility] as soon as she gets home and make an appointment for an intake. I explained the phone numbers she needs will be on her discharge. She stated her understandng. She wanted to know of the RN would sit down with her and go over her whole chart. I explained if she wanted copies she would have to go to medical records and give them specific dates for what she wanted to see and they will probably charge her for the copies. She still stopped at the RN's station to ask Sarah (RN) if she would go over her chart with her before she leaves. She reiterated to the patient the same thing that I said. Patient then asked "Well just exactly what is the discharge process". I explained at 2:00 her friend would come up and ring the door ibanez. She will be given DC instructions by the RN and she will leave with her friend and go home. (She had asked the SW at [facility] if she could come up and visit her . The SW told her she needed to call first as someone has to be available to "check" her in with COVID procedures. She stated her understanding.)
[2021-03-22] MEDS ORDERED: SEROQUEL 50 MG50 MG PO (12:04)
[2021-03-22 12:18] VITALS: BP 168/82
--- NOTE | 2021-03-22 12:19 | NUR ---
PATIENT CARE RESUMED AT 0700. PATIENT IS A&O*4, DENIES SI/HI/VH/AV. PATIENT DENIES HAVING ANY PAIN. PATIENTS LUNG SOUNDS ARE CLEAR, ABDOMEN IS SOFT AND BOWEL SOUNDS ARE PRESENT. PATIENT REFUSED LIPASE STATING SHE DOESNT NEED IT. PATIENT WAS UPSET ABOUT BEING WOKEN UP MY FLEXOGRAPHIC PRESS PLATE SETTER AT MIDNIGHT RESETTING HER BED ALARMS. PATIENT HAS NO CONCERNS AND VOICED JUST WANTING TO GO HOME TODAY. PATIENT MET WITH AND HER DENTAL LABORATORY WORKER AND THE DECISON WAS MADE TO MOVE FORWARD WITH DISCHARGE. PATIENT EDUCATION HAS TAKEN PLACE ON DISCHARGE AND IS SCHEDULED FOR DISCHARGE AT 1400 TO HER HOME. PATIENTS MOOD DID CHANGE FROM BEING ANXIOUS TO A CALM AND HAPPY ATTITUDE AFTER MEETING WITH . FALL PREVENTIONS ARE STILL IN PLACE AND WILL CONTINUE TO MONITOR FOR SAFETY AND BEHAVIORS UNTIL DISCHARGE.
--- NOTE | 2021-03-22 13:14 | NUR ---
03-22-2021--1315--Patient seen walking in the howell. She asked if I was going to do group and I told her that the other 7th grade social studies teacher will be doing group today. She went back to the day room.
--- NOTE | 2021-03-25 21:43 | D ---
[facility] [place] [address] DISCHARGE SUMMARY Name: BRONSON LYNCH Room #: 522B-B DIS IN M.R.#: [id number] Admission: 03/13/21 Attend Phys: Walt Blakely DO Discharge: 03/22/21 Date of : 52 Report #: [id number] THIS REPORT FOR: cc: FAM - Family physician unknown FAM - Family physician unknown Walt Blakely DO ~ DATE OF SERVICE: 03/22/2021 INPATIENT PSYCHIATRIC DISCHARGE SUMMARY ATTENDING: Walt Blakely D.O. ADMINISTRATIVE AIDE: Kerline Santamaria M.D. DISCHARGE DIAGNOSIS: Major depressive disorder, recurrent, severe degree. ADDITIONAL DIAGNOSIS: Narcissistic and self-defeating traits. MEDICAL COMORBIDITIES: For this patient are history of pancreatic adenocarcinoma, status post [place], 2019, on pancreatic enzyme replacement; primary hypothyroidism; diabetes mellitus type 2. Her BMI now is low. I think there is a mistake, it is currently at 24, but I think so 17.4, so I think it is close to the 17 figure. The patient will need outpatient oncology followup and she is urged to do that. She was given the name of Dr. Sandhu that practices at [facility]. She is also seeking a new primary care physician. The patient is discharged to home. Her aftercare is as follows, intake of [facility]. She should establish primary care in 1 month and see an oncology. She had asked about the CT scan of her abdomen, pelvis and chest, it was explained it was not appropriate to do these during her psychiatric admission given the fact that she has not seen the doctor. We will manage the issues and also with non-DRG payment system for geriatric psych admission. DISCHARGE DIET: Diabetic 1800 calorie diet, but still recommending an Ensure Enlive twice a day. MEDICATIONS: Lisinopril 20 mg oral daily at 0900 hours, famotidine 20 mg oral daily at 0700 hours, levothyroxine sodium 75 mcg oral daily, thyroid replacement, sertraline 100 mg oral daily for depression, pancreatic enzyme replacement 2500 unit capsules 5 capsules oral with meals, calcitriol 0.25 mcg oral daily at 0900 hours, vitamin D3 5000 international units oral daily, Seroquel 50 mg oral daily at 5:00 p.m. The patient was given crisis suicide hotline information. Return to ER if signs or symptoms such as trouble breathing, shortness of breath, SI, HI. LABORATORY DATA: This admission, hemoglobin A1c 5.6, triglycerides 59, [address] [address] DISCHARGE SUMMARY Name: BRONSON LYNCH Room #: 522B-B DIS IN M.R.#: [id number] Admission: 03/13/21 Attend Phys: Walt Blakely, Discharge: 03/22/21 Date of : 52 Report #: [id number] cholesterol 163, LDL 103, HDL 49. TSH 7.036, slightly elevated. COVID-19 serology not detected on 03/16 and 03/18. REASON FOR ADMISSION: Back on 03/13, a 70-year-old female referred from [facility]. Apparently, the patient had been hospitalized in 08/2019 just beginning of the pandemic, does not remember well. She admitted to her neighbor suicidal ideation without plan and was brought by the neighbor to the Emergency Room. The patient does have a history of a significant overdose in 03/2020. She was hospitalized at [facility]. HOSPITAL COURSE: The patient was admitted to Geriatric Psychiatry Unit. The patient was very difficult to engage and would often only partially express herself. Apparently, her has been hospitalized and placed in the nursing unit. The patient is sad about this and frustrated that she will not talk with her. The patient processed this with the psychotherapist social worker, Maria Elena, with modest benefit. The patient was not cooperative in obtaining a facility placement in assisted living that would be the ideal thing for her after discharge. She requested discharge. I think at this time, the patient will need wraparound services. Certainly, she has an above average risk for suicidality, suicide attempt, etc. It was my opinion the patient would not perform in valid manner on cognitive screening test. At this point given no other alternatives and with the patient not being suicidal or homicidal, I felt is appropriate for discharge in step-down. PHYSICAL EXAMINATION: VITAL SIGNS: Temperature 36.9, pulse 77, respirations 19, BP 168/82, O2 sat 99%. MUSCULOSKELETAL: Thin, ill-appearing female, apparently stated age. MENTAL STATUS EXAMINATION: Well-developed, ill-appearing female. Attention fair. Concentration limited. Speech soft, normal rate. Thought process: Linear and goal directed. mood/affect, costricted, congruent Thought content focused on varying hardships such as not being able to drive around well. She denied SI, HI, auditory or visual hallucinations. Memory not formally tested on day of discharge. Insight limited. Judgment fair to limited. Fund of knowledge at least average range. Prognosis for this patient is guarded to poor given self-defeating patterns of behavior. Her now needing to be placed for possible dementia. <ELECTRONICALLY SIGNED> By: Walt Blakely, 03/25/[id number] Walt Blakely DO /darin
== END 2021-03-22 14:20 | disposition home or self-care (01) | DRG 885 ==
LOC: SBH
PROVIDERS: ADMIT Psychiatry & Neurology Psychiatry; ATTEND Psychiatry & Neurology Psychiatry
DX: F33.2 Major depressive disorder, recurrent severe without psychotic features (principal); R45.851 Suicidal ideations; R63.4 Abnormal weight loss; Z20.822 Contact with and (suspected) exposure to COVID-19; I10 Essential (primary) hypertension; E78.5 Hyperlipidemia, unspecified; E03.9 Hypothyroidism, unspecified; F41.0 Panic disorder [episodic paroxysmal anxiety]; E11.9 Type 2 diabetes mellitus without complications; Z85.07 Personal history of malignant neoplasm of pancreas; Z85.05 Personal history of malignant neoplasm of liver; Z73.1 Type A behavior pattern; Z88.8 Allergy status to other drugs, medicaments and biological substances; Z91.041 Radiographic dye allergy status; Z91.040 Latex allergy status; Z68.24 Body mass index [BMI] 24.0-24.9, adult
CPT/HCPCS: 10880